=== PATIENT | female | born 1995 ===

== ENCOUNTER 2018-07-12 11:02 | Emergency (ER) | payer OTHER ==
[~2018-07-12] VITALS: Ht 160 cm; Wt 73.9 kg
[2018-07-12] MEDS ORDERED: FOLIC ACID0.4 MG PO (11:21)
[2018-07-12] MEDS ORDERED: ZYRTEC10 M3 PO (11:22)
== END 2018-07-12 16:09 | disposition home or self-care (01) ==
LOC: ER 11:02
DX: O26.891 Other specified pregnancy related conditions, first trimester (principal); R31.9 Hematuria, unspecified; Z34.01 Encounter for supervision of normal first pregnancy, first trimester

== ENCOUNTER 2018-08-16 18:44 | Emergency (ER) | payer OTHER ==
[~2018-08-16] VITALS: Ht 160 cm; Wt 72.6 kg
[~2018-08-16 18:44] MED LIST: FOLIC ACID0.4 MG PO; ZYRTEC10 M3 PO
[2018-08-16] MEDS ORDERED: FOLIC ACID1 MG PO (19:27)
[2018-08-16] MEDS ORDERED: PRENATAL PLUS1 EAC1 PO (19:28)
== END 2018-08-16 23:15 | disposition home or self-care (01) ==
LOC: ER 18:44
DX: K52.89 Other specified noninfective gastroenteritis and colitis (principal)

== ENCOUNTER → 2018-09-06 | Emergency (ER) | payer OTHER ==
[~2018-09-06] VITALS: Ht 160 cm; Wt 72.1 kg
[~2018-09-06] MED LIST changes: +FOLIC ACID1 MG PO; +MONISTAT 3 COM1 EACH VAG; +PRENATAL PLUS1 EAC1 PO
== END | disposition home or self-care (01) ==
LOC: ER 01:20
DX: B37.3 Candidiasis of vulva and vagina (principal)

== ENCOUNTER 2018-11-06 23:56 | Emergency (ER) | payer OTHER ==
[~2018-11-06] VITALS: Ht 160 cm; Wt 78.0 kg
== END 2018-11-07 | disposition home or self-care (01) ==
LOC: ER 23:56
DX: O26.892 Other specified pregnancy related conditions, second trimester (principal); J31.0 Chronic rhinitis; Z34.02 Encounter for supervision of normal first pregnancy, second trimester

== ENCOUNTER 2019-02-22 13:44 | Inpatient (IN) | payer OTHER ==
[~2019-02-22] VITALS: Ht 160 cm; Wt 85.7 kg
[2019-02-25] MEDS ORDERED: ACETAMINOPHEN500 M1 PO (12:31)
[2019-02-25] MEDS ORDERED: IBUPROFEN800 MG PO (12:31)
== END 2019-02-25 15:03 | DRG 788 ==
LOC: LDR 13:44 → OB/GYN 13:44
PROVIDERS: ADMIT Obstetrics & Gynecology
PROC: 4A0HXFZ Measurement of Products of Conception, Cardiac Rhythm, External Approach (ICD-10-PCS; 2019-02-22)
PROC: 10D00Z1 Extraction of Products of Conception, Low, Open Approach (ICD-10-PCS; principal; 2019-02-22 16:30)
DX: O82 Encounter for cesarean delivery without indication (principal); O32.1XX0 Maternal care for breech presentation, not applicable or unspecified; Z3A.38 38 weeks gestation of pregnancy; Z37.0 Single live birth